=== PATIENT | female | born 1960 | race Caucasian/White ===

== ENCOUNTER → 2016-07-01 | Outpatient (CLI) | payer OTHER, MEDICARE ==
[~2016-07-01] VITALS: Ht 172.7 cm; Wt 63.0 kg
[~2016-07-01] MED LIST: BUSPAR7.5 MG PO; CORGARD20 MG PO; HYDREA500 MG PO; LOW DOSE ASPIRI81 M1 PO; MORPHINE SULFATE5 MG PR; PROMETHAZINE HC25 M1 PO; ZOFRAN8 MG PO
== END | disposition home or self-care (01) ==
LOC: AMB 12:19
PROC: 0DB68ZX Excision of Stomach, Via Natural or Artificial Opening Endoscopic, Diagnostic (ICD-10-PCS; principal; 2016-07-01)
DX: K85.90 Acute pancreatitis without necrosis or infection, unspecified (principal); K25.9 Gastric ulcer, unspecified as acute or chronic, without hemorrhage or perforation; K29.70 Gastritis, unspecified, without bleeding; Z79.82 Long term (current) use of aspirin; Z88.2 Allergy status to sulfonamides; Z88.5 Allergy status to narcotic agent; Z88.1 Allergy status to other antibiotic agents; Z88.8 Allergy status to other drugs, medicaments and biological substances
CPT/HCPCS: 88305; 88342 TC; J3010